=== PATIENT | male | born 1965 | race African-American/Black ===

== ENCOUNTER 2017-03-16 17:31 | Emergency (ER) | payer SELFPAY ==
[~2017-03-16] VITALS: Ht 177.8 cm; Wt 82.0 kg
[2017-03-16] MEDS ORDERED: TETANUS, DIPHTHERIA, PERTUSSIS VAC/PF 0.5ML (>7YR OLD) IM ONE (21:30)
[2017-03-16] MEDS ORDERED: HYDROCODONE/ACETAMINOPHEN 5/325MG TABLET PO ONE (21:30)
[2017-03-16] MEDS ORDERED: BACITRACIN ZINC OINT UDPKT TOP ONE (21:30)
[2017-03-16] MEDS ORDERED: IBUPROFEN 800MG TABLET PO ONE (22:30)
[2017-03-16 22:41] VITALS: BP 125/82
== END 2017-03-16 22:44 | disposition home or self-care (01) ==
LOC: ER 19:45
DX: S20.219A Contusion of unspecified front wall of thorax, initial encounter (principal); S20.229A Contusion of unspecified back wall of thorax, initial encounter; S10.93XA Contusion of unspecified part of neck, initial encounter; Z87.891 Personal history of nicotine dependence; V49.9XXA Car occupant (driver) (passenger) injured in unspecified traffic accident, initial encounter; Y93.89 Activity, other specified; Y92.89 Other specified places as the place of occurrence of the external cause; Y99.8 Other external cause status
CPT/HCPCS: 71111; 90471; 90715; 93005; 99284